=== PATIENT | male | born 2000 | race Caucasian/White ===

== ENCOUNTER 2019-09-22 20:55 | Emergency (ER) | payer BC ==
[2019-09-22 21:25] VITALS: O2SAT 98
--- NOTE | 2019-09-22 21:35 | ERPHSYRPT ---
- History of Present Illness Time Seen by Provider: 09/22/19 21:15 Source: patient Exam Limitations: no limitations Patient Subjective Stated Complaint: pt states that he was swing from a rope swing into the [place], pt states that he fell and hit a tree root or the tree, pt states that he hit his rt leg, pt states that the RLE began to swell and turn purple, pt states that he took tylenol at 1800 Triage Nursing Assessment: pt ambulated into the er, pt is axo x4, pt is limping , RLE has abrasion, abrasion measure 5.5 cm x 2.5 cm, hematoma present under abrasion, pt rates 6/10 to RLE, hypertensive, clear lung sounds, clear heart tones, strong pulses to RLE, good cap refill Physician History: Patient is a 19-year-old male presents to our ED with pain to his right anterior jeter. Patient states he was swinging from a rope when he fell and hit his leg on a tree root. Injury occurred approximately 3 hours prior to arrival. Patient suffered a abrasion. However there was a swelling in that area. Patient was limping. Patient was concerned for possible fracture and decided to come to our ED for further evaluation. No other injuries reported. Pain is well localized. Pain described as a ache. No radiation. Patient took Tylenol at approximately 6 PM. Patient otherwise healthy. Tetanus up-to-date. Patient voices no other complaints at this time. Method of Injury: direct blow Occurred: hours ago (Approximately 3-hours prior to arrival.) Quality: constant Severity of Pain-Max: moderate Severity of Pain-Current: mild Lower Extremities Pain: leg: right (Patient has an abrasion right anterior leg.) Modifying Factors: Improves With: other (Pain worse with weightbearing. Pain improved with rest.) Associated Symptoms: No dizzy, No seizure, No snapping sensation, No popping sensation Allergies/Adverse Reactions: No Known Drug Allergies Allergy (Unverified 09/22/19 21:07) Home Medications: No Reportable Medications [No Reported Medications] 09/22/19 [History] Hx Tetanus, Diphtheria Vaccination/Date Given: Yes Hx Influenza Vaccination/Date Given: No Hx Pneumococcal Vaccination/Date Given: No Immunizations Up to Date: Yes Travel Risk - International Travel If Yes where:: [facility] - Coronavirus Screening Has patient experienced Coronavirus symptoms: No - Review of Systems Constitutional: No Symptoms, No Fever, No Chills Eyes: No Symptoms Ears, Nose, & Throat: No Symptoms Respiratory: No Symptoms, No Cough, No Dyspnea Cardiac: No Symptoms, No Chest Pain, No Edema, No Syncope Abdominal/Gastrointestinal: No Symptoms, No Abdominal Pain, No Nausea, No Vomiting, No Diarrhea Genitourinary Symptoms: No Symptoms, No Dysuria Musculoskeletal: No Symptoms, No Back Pain, No Neck Pain Skin: No Symptoms, No Rash Neurological: No Symptoms, No Dizziness, No Focal Weakness, No Sensory Changes Psychological: No Symptoms Endocrine: No Symptoms Hematologic/Lymphatic: No Symptoms Immunological/Allergic: No Symptoms All Other Systems: Reviewed and Negative - Past Medical History Pertinent Past Medical History: No - Past Surgical History Past Surgical History: No - Social History Smoking Status: Never smoker Exposure to second hand smoke: No Drug Use: none Patient Lives Alone: No - Nursing Vital Signs Nursing Vital Signs: Initial Vital Signs Temperature 97.7 F 09/22/19 21:09 Pulse Rate 81 09/22/19 21:09 Respiratory Rate 16 09/22/19 21:09 Blood Pressure 153/80 09/22/19 21:09 O2 Sat by Pulse Oximetry 98 09/22/19 21:09 Pain Scale Pain Intensity 6 - Physical Exam General Appearance: no apparent distress, alert Eyes, Ears, Nose, Throat Exam: moist mucous membranes Neck Exam: normal inspection, non-tender, supple Cardiovascular/Respiratory Exam: chest non-tender, normal breath sounds, regular rate/rhythm, no respiratory distress Gastrointestinal/Abdominal Exam: non-tender Back Exam: normal inspection, No vertebral tenderness Hips Exam: bilateral: non-tender, normal inspection, normal range of motion, no evidence of injury Legs Exam: right leg: normal range of motion, abrasions, bone tenderness, pain, swelling (Abrasion at the anterior proximal third of the right tibia measures 2.5 x 5.5 cm. Extremities neurovascular intact distally. PT DP pulses are palpable. Extremities pink warm well perfused. No active bleeding. Compartments are soft. Cap refill less than 2 seconds.) Knees Exam: bilateral knee: non-tender, normal inspection, normal range of motion, no evidence of injury Ankle Exam: bilateral ankle: non-tender, normal inspection, normal range of motion, no evidence of injury Foot Exam: bilateral foot: non-tender, normal inspection, normal range of motion , no evidence of injury Neuro/Tendon Exam: normal sensation, normal motor functions Mental Status Exam: alert, oriented x 3, cooperative Skin Exam: normal color, warm, dry SpO2 Interpretation: normal SpO2: 98 O2 Delivery: Room Air - Radiology Exams Lower Leg X-ray Interpretation: Interpreted by me (No fractures or dislocations.) Ordered Tests: Active Orders 24 hr Category Date Time Status Isolation, Initiate & Maintain Q4H Care 09/22/19 21:22 Active LOWER LEG Stat Exams 09/22/19 21:07 Ordered - Progress Progress: improved Progress Note: 09/22/19 22:26 Patient reassessed. He is comfortable. No active pain. Wound care per RN. X- ray negative for acute pathology. Patient tetanus up-to-date. Local wound care only at this time. No indication for antibiotics. Plan of care discussed with patient. He agrees to follow-up with his primary care doctor within 48 hours for reevaluation. Counseled pt/family regarding: diagnosis, need for follow-up, rad results - Departure Departure Disposition: Home Clinical Impression: Abrasion, Contusion of leg, right, Fall Condition: Stable Critical Care Time: No Referrals: DOCTOR,NO FAMILY [Primary Care Provider] - Additional Instructions: Discharge/Care Plan LINDA SALVADOR was seen on 09/22/19 in the Emergency Room. The patient was counseled regarding Diagnosis,Lab results, Imaging studies, need for follow up and when to return to the Emergency Room. Prescriptions given: Discharge Note I have spoken with the patient and/or caregivers. I have explained the patient' s condition, diagnosis and treatment plan based on the information available to me at this time. I have answered the patient's and/or caregiver's questions and addressed any concerns. The patient and/or caregivers have as good understanding of the patient's diagnosis, condition and treatment plan as can be expected at this point. The vital signs have been stable. The patient's condition is stable and appropriate for discharge from the emergency department. The patient will pursue further outpatient evaluation with the primary care physician or other designated or consulting physician as outlined in the discharge instructions. The patient and/or caregivers are agreeable to this plan of care and follow-up instructions have been explained in detail. The patient and/or caregivers have received these instruction. The patient/and or caregivers are aware that any significant change in condition or worsening of symptoms should prompt an immediate return to this or the closest emergency department or call 911.
[2019-09-22 22:49] VITALS: BP 135/87; PULSE 82
--- NOTE | 2019-09-23 09:10 | XRAY ---
Indication: Abrasion following fall. Comparison: None 2 view right lower leg obtained. No bony, articular, or soft tissue abnormalities.
== END 2019-09-22 22:49 | disposition home or self-care (01) ==
LOC: ED 20:55
DX: S80.811A Abrasion, right lower leg, initial encounter (principal); S80.11XA Contusion of right lower leg, initial encounter; W01.198A Fall on same level from slipping, tripping and stumbling with subsequent striking against other object, initial encounter; Y92.828 Other wilderness area as the place of occurrence of the external cause
CPT/HCPCS: 73590; 99283